=== PATIENT | female | born 1950 | race Two or more races ===

== ENCOUNTER 2016-04-06 16:56 | Inpatient (IN) | payer MEDICARE, MEDICAID ==
[~2016-04-06] VITALS: Ht 157.5 cm; Wt 82.6 kg
[2016-04-06] MEDS ORDERED: SODIUM CHLORIDE 0.9% 1,000 ML IV ONE (21:49)
[2016-04-06] MEDS ORDERED: MORPHINE SULF INJ 2 MG/ML SYRINGE 1ML IV ONE (22:00)
[2016-04-06] MEDS ORDERED: ONDANSETRON HCL 4 MG/2 ML VIAL IV ONE (22:00)
[2016-04-06 22:31] LABS: Basophils # (auto) 0 uL; Basophils % (auto) 0.6 % (0.0-2.0); Eosinophils # (auto) 0.1 uL; Eosinophils % (auto) 1.4 % (0.0-7.0); Hematocrit 32.2 % (36.0-46.0); Hemoglobin 10.2 g/dL (12.2-16.2); Lymphocytes # (auto) 1.7 uL; Mean Corpuscular Hemoglobin 28.2 pg (28.0-32.0); Mean Corpuscular Hgb Conc. 31.8 g/dL (32.0-36.0); Mean Corpuscular Volume 88.8 fL (80.0-100.0); Mean Platelet Volume 7.7 fL (7.4-10.4); Monocytes # (auto) 0.6 uL; Monocytes % (auto) 7.7 % (0.0-12.0); Neutrophils # (auto) 4.9 uL; Neutrophils % (auto) 67.3 % (37.0-80.0); Platelet Count (auto) 241 10^3/uL (140-450); Red Cell Distribution Width 13.4 % (11.6-16.0); White Blood Cell 7.3 10^3/uL (4.4-10.8)
[2016-04-06 22:52] LABS: Albumin 3.5 g/dL (3.4-5.0); BUN/Creatinine Ratio 15.9
[2016-04-06 22:55] LABS: Bilirubin, Total 0.3 mg/dL (0.2-1.0); Total Protein 7.9 g/dL (6.4-8.2)
[2016-04-06 23:32] LABS: Urine RBC None Seen /hpf (0 - 4)
[2016-04-06 23:43] LABS: Urine Bilirubin Negative (Negative); Urine Blood Negative /uL (Negative); Urine Color Yellow (Yellow); Urine Glucose Normal (Normal); Urine Ketone Negative (Negative); Urine Nitrite Negative (Negative); Urine Squamous Epithelial Cell FEW /hpf (<5); Urine Urobilinogen Normal (Negative)
[2016-04-07 00:05] LABS: INR 1.05 (0.9-1.15); Prothrombin Time 10.8 sec (9.37-12.3)
[2016-04-07] MEDS ORDERED: MORPHINE SULFATE 4 MG/ML SYRG IV ONE (03:30)
[2016-04-07 04:29] LABS: B-Type Natriuretic Peptide 75.08 pg/mL (0-100)
[2016-04-07 04:35] LABS: Temperature: 22.7 C (20.0-25.0)
[2016-04-07] MEDS ORDERED: PANT40TA2 PO (04:39)
[2016-04-07] MEDS ORDERED: LISI-646 PO (04:39)
[2016-04-07] MEDS ORDERED: ERGO1CAP6 PO (04:39)
[2016-04-07] MEDS ORDERED: SIMV-13 PO (04:40)
[2016-04-07] MEDS ORDERED: FAMO-12 PO (04:40)
[2016-04-07] MEDS ORDERED: ALBUAER3 IN (04:45)
[2016-04-07] MEDS ORDERED: TRAM50TA2 PO (04:45)
[2016-04-07] MEDS ORDERED: SENN8.6T15 PO (04:45)
[2016-04-07] MEDS ORDERED: SERT-274 PO (04:45)
[2016-04-07] MEDS ORDERED: ALPR0.5T7 PO (04:45)
[2016-04-07] MEDS ORDERED: ONDANSETRON HCL 4 MG/2 ML VIAL IV PRN (05:00)
[2016-04-07] MEDS ORDERED: PANTOPRAZOLE SODIUM 40 MG/10 ML VIAL IV ONE (05:00)
[2016-04-07] MEDS ORDERED: DOCUSATE SOD 100 MG CAP PO PRN ×2 (05:00→14:30)
[2016-04-07] MEDS ORDERED: HYDROcodone-ACET 5/325MG TAB PO PRN (05:00)
[2016-04-07] MEDS ORDERED: ACETAMINOPHEN 325 MG TAB PO PRN (05:00)
[2016-04-07] MEDS: cefTRIAXone 1GM/50ML D5W 50 ML IV SCH (06:29)
[2016-04-07 06:35] VITALS: BP 138/81
[2016-04-07 08:38] VITALS: BP 109/66
[2016-04-07] MEDS ORDERED: PANTOPRAZOLE SODIUM 40 MG/10 ML VIAL IV SCH (10:00)
[2016-04-07] MEDS ORDERED: ENOXAPARIN SOD 30 MG/0.3 ML SYRINGE SC SCH (10:00)
[2016-04-07] MEDS: HCTZ 25 MG TAB PO SCH (10:05)
[2016-04-07] MEDS: MORPHINE SULF INJ 2 MG/ML SYRINGE 1ML IV PRN ×3 (10:06→21:30)
[2016-04-07] MEDS: ENOXAPARIN SOD 40 MG/0.4 ML SYRINGE SC SCH (10:06)
[2016-04-07] MEDS: LISINOPRIL 5 MG TAB PO SCH (10:06)
[2016-04-07 13:23] VITALS: BP 102/71
[2016-04-07] MEDS ORDERED: FLEET ENEMA(ADULT) 135 ML PR ONE (14:30)
[2016-04-07 17:13] VITALS: BP 117/64
[2016-04-07] MEDS: ATORVASTATIN 20 MG TAB PO SCH (21:30)
[2016-04-07] MEDS ORDERED: PATIENTS OWN MEDICATION (simvastatin 40 MG) PO SCH ×2 (22:00)
[2016-04-07 22:11] VITALS: BP 121/70
[2016-04-08] MEDS: MORPHINE SULF INJ 2 MG/ML SYRINGE 1ML IV PRN ×4 (04:26→20:48)
[2016-04-08 05:11] VITALS: BP 111/64
[2016-04-08] MEDS: cefTRIAXone 1GM/50ML D5W 50 ML IV SCH (05:49)
[2016-04-08 06:07] LABS: Basophils # (auto) 0 uL; Basophils % (auto) 0.5 % (0.0-2.0); Eosinophils # (auto) 0.1 uL; Eosinophils % (auto) 0.9 % (0.0-7.0); Hematocrit 30.8 % (36.0-46.0); Hemoglobin 9.6 g/dL (12.2-16.2); Lymphocytes # (auto) 1.3 uL; Lymphocytes % (auto) 19.1 % (10.0-50.0); Mean Corpuscular Hemoglobin 27.7 pg (28.0-32.0); Mean Corpuscular Hgb Conc. 31.2 g/dL (32.0-36.0); Mean Corpuscular Volume 88.8 fL (80.0-100.0); Mean Platelet Volume 7.7 fL (7.4-10.4); Monocytes # (auto) 0.4 uL; Monocytes % (auto) 5.6 % (0.0-12.0); Neutrophils % (auto) 73.9 % (37.0-80.0); Platelet Count (auto) 220 10^3/uL (140-450); Red Cell Distribution Width 13.3 % (11.6-16.0); White Blood Cell 6.7 10^3/uL (4.4-10.8)
[2016-04-08 06:42] LABS: Potassium 5.2 mmol/L (3.5-5.1)
[2016-04-08 07:04] LABS: Albumin 3.1 g/dL (3.4-5.0); BUN/Creatinine Ratio 16.7; Bilirubin, Total 0.3 mg/dL (0.2-1.0); Calcium 8.4 mg/dL (8.5-10.1); Total Protein 7.2 g/dL (6.4-8.2)
[2016-04-08 09:08] VITALS: BP 105/62
[2016-04-08] MEDS: ENOXAPARIN SOD 40 MG/0.4 ML SYRINGE SC SCH (09:52)
[2016-04-08] MEDS: LISINOPRIL 5 MG TAB PO SCH (09:53)
[2016-04-08] MEDS: HCTZ 25 MG TAB PO SCH (09:53)
[2016-04-08] MEDS ORDERED: PANTOPRAZOLE SODIUM 40 MG/10 ML VIAL IV SCH (10:00)
[2016-04-08 13:00] VITALS: BP 100/60
[2016-04-08] MEDS ORDERED: CALCITONIN 200 UNIT/SPRAY NASAL ONE (14:00)
[2016-04-08] MEDS ORDERED: KETOROLAC TROMETH 30 MG/ML 1ML VIAL IV PRN (14:00)
[2016-04-08] MEDS ORDERED: ERGOCALCIFEROL 50,000 UNIT(1.25MG) CAP PO SCH (14:00)
[2016-04-08] MEDS: CALCITONIN 200 UNIT/SPRAY NASAL SCH ×2 (14:30→20:19)
[2016-04-08] MEDS: SERTRALINE HCL 50 MG TAB PO SCH (14:55)
[2016-04-08] MEDS: LACTULOSE 20Gm/30ML SOLN PO SCH (14:55)
[2016-04-08 16:48] VITALS: BP 109/65
[2016-04-08] MEDS ORDERED: HYDROcodone-ACET 10/325MG TAB PO PRN (17:15)
[2016-04-08] MEDS: CALCIUM CARB 500 MG CHEW TAB PO SCH (18:00)
[2016-04-08] MEDS ORDERED: PHYTONADIONE (VIT K)10 MG/ML 1ML VIAL ONE (18:59)
[2016-04-08] MEDS ORDERED: NOREPINEPHRINE BITARTRATE 250 ML IV ONE (18:59)
[2016-04-08 21:30] VITALS: BP 120/65
[2016-04-08] MEDS: ATORVASTATIN 20 MG TAB PO SCH (21:54)
[2016-04-09 01:15] LABS: Hematocrit 31.4 % (36.0-46.0); Hemoglobin 10.3 g/dL (12.2-16.2)
[2016-04-09] MEDS: MORPHINE SULF INJ 2 MG/ML SYRINGE 1ML IV PRN ×3 (04:52→18:19)
[2016-04-09 05:43] VITALS: BP 110/55
[2016-04-09 06:14] LABS: Hematocrit 30.6 % (36.0-46.0); Hemoglobin 9.6 g/dL (12.2-16.2)
[2016-04-09] MEDS: CALCIUM CARB 500 MG CHEW TAB PO SCH ×3 (08:42→18:19)
[2016-04-09 09:00] VITALS: BP 109/71
[2016-04-09] MEDS: LACTULOSE 20Gm/30ML SOLN PO SCH (10:04)
[2016-04-09] MEDS: CALCITONIN 200 UNIT/SPRAY NASAL SCH (10:04)
[2016-04-09] MEDS: SERTRALINE HCL 50 MG TAB PO SCH (10:04)
[2016-04-09 13:00] VITALS: BP 107/66
[2016-04-09] MEDS: SODIUM CHLORIDE 0.9% 1,000 ML IV SCH (14:29)
[2016-04-09 16:29] VITALS: BP 116/67
[2016-04-09 20:00] VITALS: BP 132/63
[2016-04-09 22:00] VITALS: BP 132/63
[2016-04-09] MEDS: ATORVASTATIN 20 MG TAB PO SCH (22:08)
[2016-04-09] MEDS: PANTOPRAZOLE 40 MG TAB PO SCH (22:08)
[2016-04-10] VITALS (7 sets, daily range): BP systolic 112–141; BP diastolic 69–78
[2016-04-10] MEDS: SODIUM CHLORIDE 0.9% 1,000 ML IV SCH ×2 (03:20→16:40)
[2016-04-10] MEDS: MORPHINE SULF INJ 2 MG/ML SYRINGE 1ML IV PRN ×2 (04:36→09:08)
[2016-04-10 06:21] LABS: Basophils # (auto) 0 uL; Basophils % (auto) 0.5 % (0.0-2.0); Eosinophils # (auto) 0.1 uL; Hematocrit 31.3 % (36.0-46.0); Hemoglobin 9.8 g/dL (12.2-16.2); Lymphocytes # (auto) 1.2 uL; Lymphocytes % (auto) 15.9 % (10.0-50.0); Mean Corpuscular Hemoglobin 27.8 pg (28.0-32.0); Mean Corpuscular Hgb Conc. 31.1 g/dL (32.0-36.0); Mean Corpuscular Volume 89.3 fL (80.0-100.0); Mean Platelet Volume 7.9 fL (7.4-10.4); Monocytes # (auto) 0.6 uL; Monocytes % (auto) 7.6 % (0.0-12.0); Neutrophils # (auto) 5.7 uL; Platelet Count (auto) 202 10^3/uL (140-450); Red Cell Distribution Width 13.1 % (11.6-16.0); White Blood Cell 7.6 10^3/uL (4.4-10.8)
[2016-04-10 06:27] LABS: BUN/Creatinine Ratio 18.3; Calcium 8.7 mg/dL (8.5-10.1); Potassium 4.6 mmol/L (3.5-5.1)
[2016-04-10] MEDS: CALCIUM CARB 500 MG CHEW TAB PO SCH ×3 (08:56→18:00)
[2016-04-10] MEDS: CALCITONIN 200 UNIT/SPRAY NASAL SCH (09:03)
[2016-04-10] MEDS: LACTULOSE 20Gm/30ML SOLN PO SCH (09:04)
[2016-04-10] MEDS: SERTRALINE HCL 50 MG TAB PO SCH (09:05)
[2016-04-10] MEDS: PANTOPRAZOLE 40 MG TAB PO SCH ×2 (09:06→21:43)
[2016-04-10] MEDS: LISINOPRIL 5 MG TAB PO SCH (09:07)
[2016-04-10] MEDS: HYDROmorphone HCL 2 MG/ML VL IV PRN ×2 (14:41→21:46)
[2016-04-10] MEDS: ATORVASTATIN 20 MG TAB PO SCH (21:43)
[2016-04-11 05:00] VITALS: BP 114/61
[2016-04-11] MEDS: HYDROmorphone HCL 2 MG/ML VL IV PRN ×4 (06:28→20:43)
[2016-04-11] MEDS: SODIUM CHLORIDE 0.9% 1,000 ML IV SCH ×2 (06:28→19:20)
[2016-04-11 08:00] VITALS: BP 114/67
[2016-04-11] MEDS: CALCITONIN 200 UNIT/SPRAY NASAL SCH (10:32)
[2016-04-11] MEDS: CALCIUM CARB 500 MG CHEW TAB PO SCH ×3 (10:33→17:50)
[2016-04-11] MEDS: PANTOPRAZOLE 40 MG TAB PO SCH ×2 (10:34→22:08)
[2016-04-11] MEDS: SERTRALINE HCL 50 MG TAB PO SCH (10:34)
[2016-04-11] MEDS: LACTULOSE 20Gm/30ML SOLN PO SCH (10:34)
[2016-04-11] MEDS: LISINOPRIL 5 MG TAB PO SCH (10:36)
[2016-04-11 13:00] VITALS: BP 124/66
[2016-04-11 17:00] VITALS: BP 109/76
[2016-04-11 20:00] VITALS: BP 138/75
[2016-04-11 22:00] VITALS: BP 138/75
[2016-04-11] MEDS: ATORVASTATIN 20 MG TAB PO SCH (22:08)
[2016-04-12 05:00] VITALS: BP 129/68
[2016-04-12 06:17] LABS: Hemoglobin 9.3 g/dL (12.2-16.2)
[2016-04-12 06:48] LABS: BUN/Creatinine Ratio 17.6; Calcium 8.5 mg/dL (8.5-10.1); Potassium 4.2 mmol/L (3.5-5.1)
[2016-04-12 07:50] VITALS: BP 140/77
[2016-04-12] MEDS: CALCIUM CARB 500 MG CHEW TAB PO SCH ×2 (08:13→12:07)
[2016-04-12] MEDS: HYDROmorphone HCL 2 MG/ML VL IV PRN ×3 (08:14→16:27)
[2016-04-12] MEDS: SODIUM CHLORIDE 0.9% 1,000 ML IV SCH (08:17)
[2016-04-12 08:56] VITALS: BP 140/77
[2016-04-12] MEDS ORDERED: LISI-275 PO (10:27)
[2016-04-12] MEDS ORDERED: CALCTAB25 PO (10:27)
[2016-04-12] MEDS: CALCITONIN 200 UNIT/SPRAY NASAL SCH (10:29)
[2016-04-12] MEDS: PANTOPRAZOLE 40 MG TAB PO SCH (10:29)
[2016-04-12] MEDS: SERTRALINE HCL 50 MG TAB PO SCH (10:29)
[2016-04-12] MEDS: LACTULOSE 20Gm/30ML SOLN PO SCH (10:29)
[2016-04-12] MEDS: LISINOPRIL 5 MG TAB PO SCH (10:31)
[2016-04-12 12:57] VITALS: BP 138/53
[2016-04-12 13:00] VITALS: BP_SYST 122; BP_SYST 139; BP_DIAS 72; BP_DIAS 82
[2016-04-12 17:26] VITALS: BP 122/82
== END 2016-04-12 19:15 | disposition home health service (06) | DRG 347 ==
LOC: ER 17:05 → OVERFLOW 17:06 → CENTRAL 04-07 05:50
PROVIDERS: ADMIT Nurse Practitioner; ATTEND Internal Medicine
DX: M80.08XA Age-related osteoporosis with current pathological fracture, vertebra(e), initial encounter for fracture (principal); N17.9 Acute kidney failure, unspecified; N20.0 Calculus of kidney; K76.0 Fatty (change of) liver, not elsewhere classified; M51.36 Other intervertebral disc degeneration, lumbar region; D64.9 Anemia, unspecified; E66.9 Obesity, unspecified; J45.909 Unspecified asthma, uncomplicated; M81.0 Age-related osteoporosis without current pathological fracture; F41.9 Anxiety disorder, unspecified; K57.30 Diverticulosis of large intestine without perforation or abscess without bleeding; K59.00 Constipation, unspecified; G89.29 Other chronic pain; I10 Essential (primary) hypertension; K44.9 Diaphragmatic hernia without obstruction or gangrene; M48.06 Spinal stenosis, lumbar region; M51.26 Other intervertebral disc displacement, lumbar region; B19.20 Unspecified viral hepatitis C without hepatic coma; R11.12 Projectile vomiting; R60.9 Edema, unspecified; E86.0 Dehydration; F32.9 Major depressive disorder, single episode, unspecified; Z68.33 Body mass index [BMI] 33.0-33.9, adult; Z79.899 Other long term (current) drug therapy
CPT/HCPCS: 36415; 71010; 72128; 72131; 74176; 78582; 80048; 80053; 81001; 82140; 83605; 83690; 83880; 84484; 85014; 85018; 85025; 85379; 85610; 85730; 86850; 86900; 86901; 87086; 93005; 93970; 96361; 96374; 96375; 96376; 97001; C9113; J0696; J2405; J3430; J3490

== ENCOUNTER → 2016-08-03 | Outpatient (CLI) | payer MEDICARE, MEDICAID ==
[~2016-08-03] MED LIST: ALBUAER3 IN; ALPR0.5T7 PO; CALCTAB25 PO; ERGO1CAP6 PO; FAMO-12 PO; LISI-275 PO; PANT40TA2 PO; SENN8.6T15 PO; SERT-274 PO; SIMV-13 PO; TRAM50TA2 PO
== END | disposition home or self-care (01) ==
LOC: XY 08:16
PROVIDERS: ATTEND Internal Medicine
DX: M48.50XD Collapsed vertebra, not elsewhere classified, site unspecified, subsequent encounter for fracture with routine healing (principal); M89.8X8 Other specified disorders of bone, other site; X58.XXXD Exposure to other specified factors, subsequent encounter
CPT/HCPCS: 78306; A9503

== ENCOUNTER → 2016-08-19 | Outpatient (CLI) | payer MEDICARE, MEDICAID ==
[2016-08-19 11:24] LABS: Basophils # (auto) 0 uL; Basophils % (auto) 0.3 % (0.0-2.0); CONDITION Y; Eosinophils # (auto) 0.1 uL; Eosinophils % (auto) 0.9 % (0.0-7.0); Hematocrit 36.2 % (36.0-46.0); Lymphocytes # (auto) 1.9 uL; Lymphocytes % (auto) 23.6 % (10.0-50.0); Mean Corpuscular Hemoglobin 29.4 pg (28.0-32.0); Mean Corpuscular Hgb Conc. 33.2 g/dL (32.0-36.0); Mean Corpuscular Volume 88.6 fL (80.0-100.0); Mean Platelet Volume 8.1 fL (7.4-10.4); Monocytes # (auto) 0.5 uL; Monocytes % (auto) 6.9 % (0.0-12.0); Neutrophils # (auto) 5.4 uL; Neutrophils % (auto) 68.3 % (37.0-80.0); Platelet Count (auto) 249 10^3/uL (140-450); Red Cell Distribution Width 13.5 % (11.6-16.0); White Blood Cell 7.9 10^3/uL (4.4-10.8)
[2016-08-19 12:52] LABS: BUN/Creatinine Ratio 20.7; Bilirubin, Total 0.3 mg/dL (0.2-1.0); Calcium 9.3 mg/dL (8.5-10.1); Potassium 3.8 mmol/L (3.5-5.1)
[2016-08-19 12:58] LABS: Vitamin B12 479 pg/mL (211-911)
[2016-08-19 12:59] LABS: Temperature: 23.5 C (20.0-25.0)
[2016-08-20 06:06] LABS: Thyroxine (T4) 10.7 ug/dL (4.5-12.0)
[2016-08-20 11:07] LABS: Kappa Lite Chain Free Serum 44.6 mg/L (3.3-19.4); Lambda Lite Chains Free Serum 32.4 mg/L (5.7-26.3)
[2016-08-22 13:06] LABS: Haptoglobin 258 mg/dL (34-200)
[2016-08-23 14:06] LABS: Erythropoietin 10.9 mIU/mL (2.6-18.5)
== END | disposition home or self-care (01) ==
LOC: LAB 10:36
PROVIDERS: ATTEND Internal Medicine
DX: D50.9 Iron deficiency anemia, unspecified (principal); D64.9 Anemia, unspecified; D89.2 Hypergammaglobulinemia, unspecified
CPT/HCPCS: 36415; 80053; 82607; 82728; 82746; 83010; 83540; 83550; 83615; 84439; 84443; 85025; 85045; 85652; 86850; 86880

== ENCOUNTER → 2016-08-23 | Outpatient (CLI) | payer MEDICARE, MEDICAID | END | disposition home or self-care (01) | LOC: LAB 08:01 | PROVIDERS: ATTEND Internal Medicine | DX: D50.9 Iron deficiency anemia, unspecified (principal) | CPT/HCPCS: 84156 ==